=== PATIENT | male | born 1945 | race Caucasian/White ===

== ENCOUNTER 2022-01-10 15:39 | Observation (INO) ==
[2022-01-10 19:44] LABS: Basophils % 0.3 %; Eosinophils # 0.1 K/mcL (0.0-0.6); Eosinophils % 0.6 %; Hematocrit 22.5 % (37.5-50.1); Hemoglobin 6.4 g/dL (12.9-16.9); Immature Granulocytes % 0.3 % (0-4); Lymphocytes # 1.5 K/mcL (0.6-4.6); Mean Corpuscular HGB Conc 28.4 g/dL (31.6-35.5); Mean Corpuscular Volume 66.8 fL (83.0-100.0); Mean Platelet Volume 9.6 fL (9.4-12.4); Monocytes # 0.8 K/mcL (0.0-1.3); Monocytes % 7.1 %; Platelet Count 384 K/mcL (140-400); Red Blood Count 3.37 M/mcL (4.19-5.50); Red Cell Distribution Width 17.2 % (11.5-14.5); Segmented Neutrophils % 78.7 %; White Blood Count 11.5 K/mcL (4.3-11.1)
[2022-01-10 19:46] LABS: Neutrophils # 9.1 K/mcL (1.6-8.9)
[2022-01-10 19:47] LABS: Hypochromasia Present (Not Present); Microcytosis Present (Not Present)
[2022-01-10] MEDS ORDERED: Iopamidol - 370 500 ML MLS IVP ONE (19:48)
[2022-01-10 19:50] LABS: Activated Partial Thrombo Time 60.3 Seconds (26.0-36.0)
[2022-01-10 19:53] LABS: BUN/Creatinine Ratio 23 (6-26); Blood Urea Nitrogen 49 mg/dL (8-23); Calcium 8.9 mg/dL (8.6-10.3); Carbon Dioxide 21 mEq/L (23-29); Chloride 104 mEq/L (98-107); Glucose 155 mg/dL (70-105); Lipase 36 Units/L (11-82); Magnesium 2.4 mg/dL (1.6-2.6); Osmolality,Calculated 304 (280-300); Sodium 139 mEq/L (136-145); Troponin I < 0.03 ng/mL (< 0.04)
[2022-01-10 20:18] LABS: INR 12.6; Prothrombin Time 137.6 Seconds (9.4-12.1)
[2022-01-10] MEDS ORDERED: *HR* Phytonadione 10 MG/ML AMPUL SQ ONE (20:22)
[2022-01-10] MEDS: 0.9 % Sodium Chloride 1,000 ML IVC ONE ×2 (20:53→20:55)
[2022-01-10] MEDS: Pantoprazole 40 MG VIAL IVP ONE ×2 (20:53→21:06)
[2022-01-10] MEDS ORDERED: 0.9 % Sodium Chloride 250 ML ONE (21:32)
[2022-01-10] MEDS ORDERED: Naloxone 0.4 MG/ML INJ IVP PRN (22:58)
[2022-01-10] MEDS ORDERED: Ondansetron ODT 4 MG TAB.RAPDIS SL PRN (22:58)
[2022-01-10] MEDS ORDERED: Acetaminophen 325 MG TABLET PO PRN (22:58)
[2022-01-10] MEDS ORDERED: Dextrose Gel 15 GM/37.5 ML TUBE PO PRN ×2 (22:58)
[2022-01-10] MEDS ORDERED: *HR* Dextrose 50 % in Water (Syg) 50 ML SYRINGE IVP PRN (22:58)
[2022-01-10] MEDS ORDERED: Melatonin 3 MG TABLET PO PRN (22:58)
[2022-01-10] MEDS ORDERED: D5% in Water 1,000 ML IVC PRN (22:58)
[2022-01-11] MEDS: Insulin LISPRO 300 UNITS/3 ML VIAL SUBQ SCH ×4 (02:15→19:44)
[2022-01-11] MEDS ORDERED: 0.9 % Sodium Chloride 250 ML ONE (02:32)
[2022-01-11] MEDS: Pantoprazole 40 MG VIAL IVP SCH ×2 (06:26→17:07)
[2022-01-11 08:58] LABS: Basophils % 0.4 %; Eosinophils # 0.2 K/mcL (0.0-0.6); Eosinophils % 2.6 %; Hematocrit 26.9 % (37.5-50.1); Hemoglobin 8.3 g/dL (12.9-16.9); Immature Granulocytes % 0.2 % (0-4); Lymphocytes % 22.1 %; Mean Corpuscular HGB Conc 30.9 g/dL (31.6-35.5); Mean Corpuscular Hemoglobin 21.8 pg (28.0-33.3); Mean Corpuscular Volume 70.8 fL (83.0-100.0); Mean Platelet Volume 8.9 fL (9.4-12.4); Monocytes # 0.8 K/mcL (0.0-1.3); Monocytes % 8.9 %; Platelet Count 292 K/mcL (140-400); Red Cell Distribution Width 21.3 % (11.5-14.5); Segmented Neutrophils % 65.8 %; White Blood Count 9.1 K/mcL (4.3-11.1)
[2022-01-11 09:09] LABS: INR 1.8; Prothrombin Time 20.2 Seconds (9.4-12.1)
[2022-01-11 09:11] LABS: Activated Partial Thrombo Time 32.1 Seconds (26.0-36.0)
[2022-01-11 09:22] LABS: Albumin 3.8 g/dL (3.5-5.7); Albumin/Globulin Ratio 1.7 (1.1-2.2); Bilirubin,Total 0.5 mg/dL (0.3-1.0); Calcium 8.4 mg/dL (8.6-10.3); Globulin 2.3 g/dL (2.4-3.5); Magnesium 2.2 mg/dL (1.6-2.6); Phosphorous 2.6 mg/dL (2.7-4.5); Potassium 3.5 mEq/L (3.5-5.1); Total Protein 6.1 g/dL (6.4-8.9)
[2022-01-11] MEDS ORDERED: SODIUM CHLORIDE/NAHCO3/KCL/PEG 4,000 ML SOLN.RECON PO ONE (17:00)
[2022-01-12] MEDS: Insulin LISPRO 300 UNITS/3 ML VIAL SUBQ SCH ×3 (00:14→12:50)
[2022-01-12] MEDS: Pantoprazole 40 MG VIAL IVP SCH (05:38)
[2022-01-12 06:33] LABS: Hematocrit 26.7 % (37.5-50.1); Hemoglobin 8.2 g/dL (12.9-16.9); Mean Corpuscular HGB Conc 30.7 g/dL (31.6-35.5); Mean Corpuscular Hemoglobin 21.8 pg (28.0-33.3); Mean Corpuscular Volume 70.8 fL (83.0-100.0); Mean Platelet Volume 9.6 fL (9.4-12.4); Platelet Count 292 K/mcL (140-400); Red Blood Count 3.77 M/mcL (4.19-5.50); Red Cell Distribution Width 20.8 % (11.5-14.5); White Blood Count 8.6 K/mcL (4.3-11.1)
[2022-01-12 06:50] LABS: Calcium 8.2 mg/dL (8.6-10.3); Potassium 3.3 mEq/L (3.5-5.1)
[2022-01-12] MEDS ORDERED: ALPRAZolam 0.5 MG TABLET PO PRN (07:17)
[2022-01-12] MEDS: amLODIPine 5 MG TABLET PO SCH ×2 (08:14→08:27)
[2022-01-12] MEDS: Aspirin 81 MG TAB.CHEW PO SCH ×2 (08:14→08:27)
[2022-01-12] MEDS ORDERED: Losartan/HCTZ 50-12.5 TABLET PO SCH ×2 (09:00)
[2022-01-12] MEDS ORDERED: amLODIPine 5 MG TABLET PO SCH (09:00)
[2022-01-12] MEDS ORDERED: Aspirin 81 MG TAB.CHEW PO SCH (09:00)
[2022-01-12 10:00] LABS: INR 1.4; Prothrombin Time 15.7 Seconds (9.4-12.1)
[2022-01-12] MEDS ORDERED: Simethicone 40 MG/0.6 ML MLS ONE (12:10)
[2022-01-12] MEDS ORDERED: Lidocaine -MPF 2% 5 ML VIAL ONE (12:51)
[2022-01-12] MEDS ORDERED: EPHEDrine 50 MG/ML VIAL ONE (13:05)
[2022-01-12 14:41] VITALS: BP 114/98; PULSE 87; TEMP 97.6; O2SAT 90
== END 2022-01-12 17:22 | disposition home or self-care (01) ==
LOC: 3NENU 15:39 → EMEROOARM 15:39 → SUATTDRO 01-11 01:09 → 3NENU 01-11 01:50
PROVIDERS: ADMIT Internal Medicine; ATTEND Internal Medicine
PROC: ENDOCBX (2022-01-12 13:00)

== ENCOUNTER 2022-02-22 06:34 | Inpatient (IN) ==
[2022-02-22] MEDS ORDERED: Acetaminophen IV 1,000 MG/100 ML BAG IVPB ONE (07:29)
[2022-02-22] MEDS ORDERED: cefOXitin 2,000 MG in 0.9 % Sodium Chloride 20 ML IVP ONE (07:38)
[2022-02-22] MEDS ORDERED: Ringers Solution, Lactated 1,000 ML IVC SCH (07:45)
[2022-02-22] MEDS ORDERED: *HR* HYDROmorphone PF 0.5 MG/0.5 ML SYRINGE IVP PRN (07:49)
[2022-02-22] MEDS ORDERED: Albuterol 2.5 MG/3 ML NEBULIZER IH PRN (07:49)
[2022-02-22] MEDS ORDERED: Ondansetron 4 MG/2 ML VIAL IVP PRN ×2 (07:49→14:17)
[2022-02-22] MEDS ORDERED: *HR* Rocuronium Bromide 50 MG/5 ML VIAL ONE ×2 (08:29→10:40)
[2022-02-22] MEDS ORDERED: Ondansetron 4 MG/2 ML VIAL ONE (08:29)
[2022-02-22] MEDS ORDERED: Lidocaine -MPF 2% 2 ML VIAL ONE (08:29)
[2022-02-22] MEDS ORDERED: *HR* Midazolam HCl 2 MG/2 ML VIAL ONE (08:29)
[2022-02-22] MEDS ORDERED: *HR* FentaNYL (PF) 100 MCG/2 ML VIAL ONE ×2 (08:29→10:15)
[2022-02-22] MEDS ORDERED: *HR* Propofol 200 MG/20 ML VIAL IVP ONE (08:29)
[2022-02-22] MEDS ORDERED: Lidocaine HCL 4 ML Topical Solution (Laryng-O-Jet Kit Sterile Pak) TP ONE (08:29)
[2022-02-22] MEDS ORDERED: *HR* Remifentanil 1 MG VIAL IVP ONE (10:41)
[2022-02-22] MEDS ORDERED: *HR* HYDROMORPHONE 2 MG/ML VIAL ONE (12:33)
[2022-02-22] MEDS ORDERED: Sugammadex Sodium 200 MG/2 ML VIAL IV ONE (12:47)
[2022-02-22] MEDS ORDERED: *HR* Labetalol 20 MG/4 ML SYRINGE IVP ONE (13:34)
[2022-02-22] MEDS: *HR* Labetalol 20 MG/4 ML SYRINGE IVP SCH ×2 (13:36→14:18)
[2022-02-22] MEDS ORDERED: *HR* OxyCODONE Immed Rel 5 MG TABLET PO PRN (14:17)
[2022-02-22] MEDS ORDERED: Dextrose Gel 15 GM/37.5 ML TUBE PO PRN ×2 (14:17)
[2022-02-22] MEDS ORDERED: D5% in Water 1,000 ML IVC PRN (14:17)
[2022-02-22] MEDS ORDERED: Naloxone 0.4 MG/ML INJ IVP PRN (14:17)
[2022-02-22] MEDS ORDERED: *HR* Dextrose 50 % in Water (Syg) 50 ML SYRINGE IVP PRN (14:17)
[2022-02-22] MEDS ORDERED: Morphine Sulfate Oral CONC 10 MG/0.5 ML ORAL.SYG SL PRN (14:17)
[2022-02-22] MEDS: cefOXitin 1,000 MG in Water for inj. (sterile) 10 ML IVP SCH (17:24)
[2022-02-22] MEDS: 0.9 % Sodium Chloride 1,000 ML IVC SCH (17:24)
[2022-02-22] MEDS: Acetaminophen 325 MG TABLET PO SCH ×2 (17:30→23:56)
[2022-02-22] MEDS: Insulin LISPRO 300 UNITS/3 ML VIAL SUBQ SCH (18:33)
[2022-02-23] MEDS: Insulin LISPRO 300 UNITS/3 ML VIAL SUBQ SCH ×4 (00:38→19:52)
[2022-02-23 00:55] LABS: Basophils % 0.1 %; Hemoglobin 9.1 g/dL (12.9-16.9); Immature Granulocytes % 0.4 % (0-4); Lymphocytes # 0.7 K/mcL (0.6-4.6); Lymphocytes % 7.2 %; Mean Corpuscular HGB Conc 31.4 g/dL (31.6-35.5); Mean Corpuscular Hemoglobin 23.9 pg (28.0-33.3); Mean Corpuscular Volume 76.1 fL (83.0-100.0); Mean Platelet Volume 9.5 fL (9.4-12.4); Monocytes # 0.7 K/mcL (0.0-1.3); Monocytes % 6.6 %; Neutrophils # 8.5 K/mcL (1.6-8.9); Platelet Count 237 K/mcL (140-400); Red Blood Count 3.81 M/mcL (4.19-5.50); Red Cell Distribution Width 26.5 % (11.5-14.5); Segmented Neutrophils % 85.7 %; White Blood Count 9.9 K/mcL (4.3-11.1)
[2022-02-23 01:16] LABS: Calcium 8.7 mg/dL (8.6-10.3); Potassium 3.9 mEq/L (3.5-5.1)
[2022-02-23] MEDS: cefOXitin 1,000 MG in Water for inj. (sterile) 10 ML IVP SCH ×2 (02:41→08:46)
[2022-02-23] MEDS: Acetaminophen 325 MG TABLET PO SCH ×3 (05:49→16:30)
[2022-02-23] MEDS: 0.9 % Sodium Chloride 1,000 ML IVC SCH (05:52)
[2022-02-23 07:08] LABS: Magnesium 1.7 mg/dL (1.6-2.6); Phosphorous 1.9 mg/dL (2.7-4.5)
[2022-02-23] MEDS ORDERED: Iron Sucrose Complex 400 MG in 0.9 % Sodium Chloride 250 ML IVPB ONE (07:22)
[2022-02-23] MEDS ORDERED: SODIUM PHOSPHATE IVPB ONE (07:22)
[2022-02-23] MEDS ORDERED: SODIUM CHLORIDE 0.9% IVPB ONE (07:22)
[2022-02-23] MEDS ORDERED: GI Cocktail 40 ML EACH PO STA (08:03)
[2022-02-23] MEDS: Losartan/HCTZ 50-12.5 TABLET PO SCH (08:39)
[2022-02-23 12:14] LABS: Estimated Average Glucose 105 mg/dl; Hemoglobin A1C 5.3 %
[2022-02-23] MEDS: *HR* Heparin 5,000 UNIT/ML VIAL SQ SCH ×2 (14:36→16:30)
[2022-02-24] MEDS: Insulin LISPRO 300 UNITS/3 ML VIAL SUBQ SCH ×5 (00:04→23:09)
[2022-02-24] MEDS: Acetaminophen 325 MG TABLET PO SCH ×5 (00:07→23:02)
[2022-02-24] MEDS: ALPRAZolam 0.5 MG TABLET PO PRN (03:56)
[2022-02-24] MEDS: *HR* Heparin 5,000 UNIT/ML VIAL SQ SCH ×2 (05:57→18:24)
[2022-02-24] MEDS ORDERED: *HR* Metoprolol 5 MG/5 ML VIAL IVP ONE (08:24)
[2022-02-24] MEDS: Losartan/HCTZ 50-12.5 TABLET PO SCH (09:07)
[2022-02-24 10:06] LABS: Basophils % 0.1 %; Eosinophils % 0.1 %; Hematocrit 29.6 % (37.5-50.1); Hemoglobin 9.2 g/dL (12.9-16.9); Immature Granulocytes % 0.4 % (0-4); Lymphocytes # 1.5 K/mcL (0.6-4.6); Lymphocytes % 15.1 %; Mean Corpuscular HGB Conc 31.1 g/dL (31.6-35.5); Mean Corpuscular Volume 77.1 fL (83.0-100.0); Mean Platelet Volume 10.2 fL (9.4-12.4); Monocytes # 0.8 K/mcL (0.0-1.3); Monocytes % 7.9 %; Neutrophils # 7.4 K/mcL (1.6-8.9); Platelet Count 218 K/mcL (140-400); Red Blood Count 3.84 M/mcL (4.19-5.50); Red Cell Distribution Width 26.8 % (11.5-14.5); Segmented Neutrophils % 76.4 %; White Blood Count 9.7 K/mcL (4.3-11.1)
[2022-02-24 10:14] LABS: INR 1.3; Prothrombin Time 14.4 Seconds (9.4-12.1)
[2022-02-24 10:22] LABS: BUN/Creatinine Ratio 12 (6-26); Blood Urea Nitrogen 9 mg/dL (8-23); Calcium 8.8 mg/dL (8.6-10.3); Carbon Dioxide 25 mEq/L (23-29); Chloride 106 mEq/L (98-107); Glucose 164 mg/dL (70-105); Magnesium 1.8 mg/dL (1.6-2.6); Osmolality,Calculated 288 (280-300); Phosphorous 1.8 mg/dL (2.7-4.5); Potassium 3.4 mEq/L (3.5-5.1); Sodium 138 mEq/L (136-145)
[2022-02-24 10:38] LABS: Anisocytosis 1+ (Not Present); Microcytosis Present (Not Present); Platelet Estimate Normal (Normal)
[2022-02-24] MEDS ORDERED: Iron Sucrose Complex 400 MG in 0.9 % Sodium Chloride 250 ML IVPB ONE (10:45)
[2022-02-24] MEDS: *HR* Metoprolol 5 MG/5 ML VIAL IVP SCH ×3 (12:45→23:05)
[2022-02-24] MEDS: DilTIAZem CD (24hr) 120 MG CAP.ER.24H PO SCH (13:47)
[2022-02-24] MEDS ORDERED: *HR* Warfarin 5 MG TABLET PO SCH (18:00)
[2022-02-25 04:03] LABS: Basophils % 0.2 %; Eosinophils # 0.1 K/mcL (0.0-0.6); Eosinophils % 0.9 %; Hematocrit 29.1 % (37.5-50.1); Hemoglobin 9.2 g/dL (12.9-16.9); Immature Granulocytes % 0.4 % (0-4); Lymphocytes # 1.8 K/mcL (0.6-4.6); Lymphocytes % 22.2 %; Mean Corpuscular HGB Conc 31.6 g/dL (31.6-35.5); Mean Corpuscular Hemoglobin 24.4 pg (28.0-33.3); Mean Corpuscular Volume 77.2 fL (83.0-100.0); Mean Platelet Volume 9.7 fL (9.4-12.4); Monocytes # 0.7 K/mcL (0.0-1.3); Monocytes % 8.6 %; Platelet Count 226 K/mcL (140-400); Red Blood Count 3.77 M/mcL (4.19-5.50); Red Cell Distribution Width 26.2 % (11.5-14.5); Segmented Neutrophils % 67.7 %; White Blood Count 8.2 K/mcL (4.3-11.1)
[2022-02-25 04:05] LABS: Neutrophils # 5.6 K/mcL (1.6-8.9)
[2022-02-25 04:09] LABS: INR 1.2; Prothrombin Time 13.5 Seconds (9.4-12.1)
[2022-02-25 04:21] LABS: BUN/Creatinine Ratio 13 (6-26); Blood Urea Nitrogen 10 mg/dL (8-23); Calcium 8.5 mg/dL (8.6-10.3); Carbon Dioxide 25 mEq/L (23-29); Chloride 106 mEq/L (98-107); Glucose 119 mg/dL (70-105); Magnesium 1.8 mg/dL (1.6-2.6); Osmolality,Calculated 286 (280-300); Phosphorous 1.8 mg/dL (2.7-4.5); Potassium 3.4 mEq/L (3.5-5.1); Sodium 138 mEq/L (136-145)
[2022-02-25 04:25] LABS: Anisocytosis 2+ (Not Present); Platelet Estimate Normal (Normal)
[2022-02-25] MEDS: Insulin LISPRO 300 UNITS/3 ML VIAL SUBQ SCH (06:16)
[2022-02-25] MEDS: Acetaminophen 325 MG TABLET PO SCH (06:17)
[2022-02-25] MEDS: *HR* Heparin 5,000 UNIT/ML VIAL SQ SCH (06:18)
[2022-02-25] MEDS: *HR* Metoprolol 5 MG/5 ML VIAL IVP SCH (06:18)
[2022-02-25] MEDS: ALPRAZolam 0.5 MG TABLET PO PRN (06:20)
[2022-02-25] MEDS ORDERED: Potassium Phosphate 44 MEQ in 0.9 % Sodium Chloride 250 ML IVPB ONE (06:28)
[2022-02-25] MEDS: DilTIAZem CD (24hr) 120 MG CAP.ER.24H PO SCH (09:22)
[2022-02-25] MEDS: Losartan/HCTZ 50-12.5 TABLET PO SCH (09:22)
[2022-02-25 10:46] VITALS: BP 144/69; PULSE 67; TEMP 98.7; O2SAT 93
== END 2022-02-25 11:28 | disposition home or self-care (01) | DRG 330 ==
LOC: SAMDAY 06:34 → 2ANU 14:11 → 3ANU 14:15
PROVIDERS: ADMIT Surgery; ATTEND Surgery